=== PATIENT | male | born 1955 | race Hispanic/Latino ===

== ENCOUNTER 2018-04-25 08:50 | Emergency (ER) | payer MEDICAID ==
[2018-04-25 08:55] VITALS: BMI 25.1
[2018-04-25 08:56] VITALS: BP 138/66; O2SAT 98
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
[2018-04-25 11:32] VITALS: PULSE 78; RESP 18; TEMP 98.1
--- NOTE | 2018-04-25 12:04 | RAD ---
Date of service: 04/25/2018 PROCEDURE: Left Knee Radiographs. HISTORY: Pain. COMPARISON: None. FINDINGS: BONES: Normal. No fracture. JOINTS: Severe degenerative changes are seen in the left knee. There is complete loss of the joint space on the medial side with bony sclerosis and osteophyte formation. Large osteophytes are also seen arising from the patellofemoral joint. More mild degenerative changes are seen in the lateral joint space. JOINT EFFUSION: None. OTHER FINDINGS: None. IMPRESSION: Severe osteoarthritis
== END 2018-04-25 11:32 | disposition home or self-care (01) ==
LOC: ED 08:50
DX: G89.29 Other chronic pain (principal); M25.562 Pain in left knee; M17.12 Unilateral primary osteoarthritis, left knee; Z87.891 Personal history of nicotine dependence
CPT/HCPCS: 73562; 96372; 99283; J1100

== ENCOUNTER 2019-02-05 13:05 | Emergency (ER) | payer MEDICAID ==
[2019-02-05 13:07] VITALS: BMI 25.1
[2019-02-05 13:26] VITALS: TEMP 98.1; O2SAT 95
--- NOTE | 2019-02-05 13:48 | ED PDOC ---
Arrival/HPI - History of Present Illness Narrative History of Present Illness (Text): 02/05/19 13:42 Patient is a 63 year old male with past medical history of hepatitis C, cirrhosis, previous drug abuse presenting with chief complaint of right sided abdominal pain which began 5 days ago. Admits to nausea, constipation, and palpitations. Denies fevers, chills, chest pain, shortness of breath, diarrhea, dysuria. Time/Duration: < week Symptom Onset: Sudden Quality: Cramping Severity Level: Mild <Hamilton Hall - Last Filed: 02/05/19 13:42> <Romaine Dexter - Last Filed: 02/05/19 18:46> - General Chief Complaint: Abdominal Pain Time Seen by Provider: 02/05/19 13:11 Past Medical History - Provider Review Nursing Documentation Reviewed: Yes - Infectious Disease Hx of Infectious Diseases: None - Tetanus Immunization Tetanus Immunization: Unknown - Cardiac Hx Cardiac Disorders: Yes Hx Hypertension: Yes - Pulmonary Hx Respiratory Disorders: No - Neurological Hx Neurological Disorder: Yes Hx Seizures: Yes - HEENT Hx HEENT Disorder: No - Renal Hx Renal Disorder: No - Endocrine/Metabolic Hx Endocrine Disorders: No - Hematological/Oncological Hx Hepatitis C: Yes - Integumentary Hx Dermatological Disorder: No - Musculoskeletal/Rheumatological Hx Musculoskeletal Disorders: Yes Hx Arthritis: Yes Other/Comment: bilateral leg pain - Gastrointestinal Hx Gastrointestinal Disorders: Yes Hx Liver Failure: Yes - Genitourinary/Gynecological Hx Genitourinary Disorders: No - Psychiatric Hx Depression: No Hx Emotional Abuse: No Hx Physical Abuse: No Hx Substance Use: Yes - Anesthesia Hx Anesthesia: No Hx Anesthesia Reactions: No Hx Malignant Hyperthermia: No - Suicidal Assessment Feels Threatened In Home Enviroment: No <Hamilton Hall - Last Filed: 02/05/19 13:42> - Provider Review Primary Care Physician: Lorelei Pineda MD <Romaine Dexter - Last Filed: 02/05/19 18:46> Family/Social History - Physician Review Nursing Documentation Reviewed: Yes Family/Social History: No Known Family HX Smoking Status: Former Smoker Hx Alcohol Use: Yes Hx Substance Use: Yes Hx Substance Use Treatment: No <Hamilton Hall - Last Filed: 02/05/19 13:42> Allergies/Home Meds <Hamilton Hall - Last Filed: 02/05/19 13:42> <Romaine Dexter - Last Filed: 02/05/19 18:46> Allergies/Adverse Reactions: Allergies No Known Allergies Allergy (Verified 04/25/18 08:55) Home Medications: Home Meds Medication Instructions Recorded Confirmed Methadone [Methadone HCl] 80 mg PO DAILY 05/06/13 05/06/13 LORazepam [Ativan] 3 mg PO DAILY 04/25/18 04/25/18 Naproxen [Anaprox] 0 mg PO DAILY 04/25/18 04/25/18 Review of Systems - Physician Review All systems were reviewed & negative as marked: Yes - Review of Systems Respiratory: Normal Cardiovascular: Palpitations Gastrointestinal: Abdominal Pain, Nausea Genitourinary Male: Normal <Hamilton Hall - Last Filed: 02/05/19 13:42> Physical Exam Vital Signs Temp Pulse Resp BP Pulse Ox 02/05/19 13:25 98.1 F 75 19 154/56 H 95 Temperature: Afebrile Blood Pressure: Hypertensive Pulse: Regular Respiratory Rate: Normal Appearance: Positive for: Well-Appearing, Comfortable Pain Distress: None Mental Status: Positive for: Alert and Oriented X 3 - Systems Exam Head: Present: Atraumatic, Normocephalic Pupils: Present: PERRL Extroacular Muscles: Present: EOMI Conjunctiva: Present: Normal Mouth: Present: Moist Mucous Membranes Respiratory/Chest: Present: Clear to Auscultation, Good Air Exchange. No: Respiratory Distress, Accessory Muscle Use Cardiovascular: Present: Regular Rate and Rhythm, Normal S1, S2 Abdomen: Present: Normal Bowel Sounds. No: Tenderness, Distention Lower Extremity: Present: Normal Inspection. No: Edema Neurological: Present: GCS=15, CN II-XII Intact, Speech Normal Skin: Present: Warm, Dry, Normal Color Psychiatric: Present: Alert, Oriented x 3 <Hamilton Hall - Last Filed: 02/05/19 13:42> Vital Signs Temp Pulse Resp BP Pulse Ox 02/05/19 13:25 98.1 F 75 19 154/56 H 95 <Romaine Dexter - Last Filed: 02/05/19 18:46> Medical Decision Making ED Course and Treatment: 02/05/19 14:20 Impression: 63 year old male with abdominal pain Plan: - CBC, CMP - Amylase, lipase - Cardiac ISO - Zofran - IVF - CXR - EKG - Urinalysis - Reassess and disposition Prior Visits: Notes and results from previous visits were reviewed. Progress Notes: <Hamilton Hall - Last Filed: 02/05/19 13:42> ED Course and Treatment: 02/05/19 18:02 notified of nodule. 6 mo f/u. 02/05/19 18:45 abd pain/palpiatiosn . pt reports ran out of ativan. labs ct neg. us neg for christel. in erm pt in nad. numerous times requests rx for ativan. adivsed jose not refill chronic narcotic. - RAD Interpretation Narrative RAD Interpretations (Text): 02/05/19 14:43 Chest X-ray reviewed by Sonia Garcia MD, shows: No active disease. Radiology Orders: 02/05/19 13:50 CHEST PORTABLE [RAD] Stat Technical Business Systems Analyst: Radiologist - Medication Orders Current Medication Orders: Discontinued Medications Sodium Chloride (Sodium Chloride 0.9%) 500 mls @ 999 mls/hr IV .Q31M STA Stop: 02/05/19 14:21 Ondansetron HCl (Zofran Inj) 4 mg IVP STAT STA Stop: 02/05/19 13:51 <Romaine Dexter - Last Filed: 02/05/19 18:46> Disposition/Present on Arrival - Present on Arrival Any Indicators Present on Arrival: No History of DVT/PE: No History of Uncontrolled Diabetes: No Urinary Catheter: No History of Decub. Ulcer: No History Surgical Site Infection Following: None <Hamilton Hall - Last Filed: 02/05/19 13:42> - Present on Arrival Any Indicators Present on Arrival: No - Disposition Have Diagnosis and Disposition been Completed?: Yes Disposition Time: 17:00 <Romaine Dexter - Last Filed: 02/05/19 18:46> - Disposition Diagnosis: Abdominal pain, Palpitations Disposition: HOME/ ROUTINE Patient Problems: Current Active Problems Problem Status Onset Abdominal pain Acute Condition: STABLE Discharge Instructions (ExitCare): Acute Abdomen (Belly Pain), Adult (DC) Additional Instructions: return to er with worsneing. please see your doctor/specialist. please discuss your ct finding with your doc. you will need 6 mo followup Referrals: [facility] [Outside] - Follow up with primary [facility] [Outside] - Follow up with primary Mihai Clarke MD [Staff Provider] - Follow up with primary Lorelei Pineda MD [Primary Care Provider] - Follow up with primary Forms: [employer] (Lao)
[2019-02-05] MEDS ORDERED: Sodium Chloride 0.9% 500 ML IV STA (13:51)
--- NOTE | 2019-02-05 14:39 | RAD ---
Date of service: 02/05/2019 HISTORY: abd pain COMPARISON: No prior. TECHNIQUE: 1 view obtained. FINDINGS: LUNGS: No active pulmonary disease. PLEURA: No significant pleural effusion identified, no pneumothorax apparent. CARDIOVASCULAR: No aortic atherosclerotic calcification present. Normal cardiac size. No pulmonary vascular congestion. OSSEOUS STRUCTURES: No significant abnormalities. VISUALIZED UPPER ABDOMEN: Normal. OTHER FINDINGS: None. IMPRESSION: No active disease.
[2019-02-05 14:54] VITALS: RESP 18
[2019-02-05 15:24] LABS: BASO # 0.01 K/mm3 (0.0-2.0); BASO % 0.3 % (0.0-3.0); EOS % 0.5 % (1.5-5.0); HEMOGLOBIN 13.5 g/dL (14.0-18.0); LYMPH # 0.8 (1.2-3.4); LYMPH % 21.3 % (22.0-35.0); MEAN CELL VOLUME 99.7 fl (80.0-105.0); MEAN CORPUSCULAR HEMOGLOBIN 34.3 pg (25.0-35.0); MEAN CORPUSCULAR HGB CONC 34.4 g/dl (31.0-37.0); MONO # 0.3 (0.1-0.6); MONO % 7.6 % (1.0-6.0); RBC 3.94 10^6/uL (3.5-6.1); RED CELL DISTRIBUTION WIDTH 13.7 % (11.5-14.5); WHITE BLOOD COUNT 3.9 10^3/uL (4.5-11.0)
[2019-02-05 15:27] LABS: INR 1.24; PARTIAL THROMBOPLASTIN TIME 36.6 Seconds (26.9-38.3); PROTHROMBIN TIME 13.8 SECONDS (9.4-12.5)
[2019-02-05 15:31] LABS: ALB/GLOB RATIO 0.9 (1.1-1.8); ALBUMIN 4.5 g/dL (3.0-4.8); ALT/SGPT 88 U/L (7-56); AMYLASE 61 U/L (35-125); AST/SGOT 130 U/L (17-59); BLOOD UREA NITROGEN 19 mg/dL (7-21); CALCIUM 9.3 mg/dL (8.4-10.5); GFR NON-AFRICAN AMERICAN > 60; LIPASE 57 U/L (23-300)
[2019-02-05 15:40] LABS: TROPONIN I < 0.01 ng/mL
[2019-02-05] MEDS ORDERED: Iohexol 350 MG/100 ML VIAL ONE (16:19)
--- NOTE | 2019-02-05 16:46 | CARD ---
APPROVED REPORT Date of service: 02/05/2019 EKG Measurement Heart [id number] <Conclusion> Atrial fibrillation Incomplete right bundle branch block Left anterior fascicular block Abnormal ECG
[2019-02-05 16:48] LABS: URINE BILIRUBIN NEGATIVE (NEGATIVE); URINE BLOOD NEGATIVE (NEGATIVE); URINE GLUCOSE (UA) NEGATIVE (NEGATIVE); URINE LEUKOCYTE ESTERASE NEGATIVE Leu/uL (NEGATIVE); URINE PROTEIN NEGATIVE mg/dL (<30 mg/dL)
[2019-02-05 16:52] LABS: URINE APPEARANCE CLEAR (CLEAR); URINE COLOR YELLOW (YELLOW)
--- NOTE | 2019-02-05 17:07 | CT ---
Date of service: 02/05/2019 PROCEDURE: CT Abdomen and Pelvis with contrast HISTORY: rigth sided abd pain h/o of hep c COMPARISON: None. TECHNIQUE: Contrast dose: 96 mL of Omnipaque 350 intravenously. Axial and reformatted coronal and sagittal CT images of the abdomen and pelvis were obtained after IV contrast administration Radiation dose: Total exam DLP = 482.91 mGy-cm. This CT exam was performed using one or more of the following dose reduction techniques: Automated exposure control, adjustment of the mA and/or kV according to patient size, and/or use of iterative reconstruction technique. FINDINGS: LOWER THORAX: 5 millimeter noncalcified nodule at the right lower lobe image 6 series 2 LIVER: Heterogeneous attenuation of the liver without evidence of discrete enhancing mass lesion. The portal vein is patent. GALLBLADDER AND BILE DUCTS: The gallbladder is moderately distended. No definite CT evidence of acute cholecystitis. The common bile duct is also mildly dilated measures in the distal portion it 0.5 millimeter. PANCREAS: The pancreas is small in size. The main pancreatic duct is not dilated. SPLEEN: The spleen is enlarged measures up to 14 centimeter. ADRENALS: Unremarkable. No mass. KIDNEYS AND URETERS: Unremarkable. No hydronephrosis. No solid mass. VASCULATURE: Unremarkable. No aortic aneurysm. Diffuse atherosclerotic calcification in the abdominal aorta and iliac arteries associated with scattered foci of mural thickening. BOWEL: Mild constipation noted. Scattered colonic diverticulosis are noted without evidence of diverticulitis. No obstruction. No gross mural thickening. APPENDIX: No evidence of appendicitis. PERITONEUM: Unremarkable. No free fluid. No free air. LYMPH NODES: Unremarkable. No enlarged lymph nodes. BLADDER: Mild urinary bladder wall thickening is noted. REPRODUCTIVE: Unremarkable. BONES: No acute fracture. Severe osteoarthritic changes at the right hip noted. OTHER FINDINGS: None. IMPRESSION: Moderately distended gallbladder without definite CT evidence of acute cholecystitis. Mildly dilated common bile duct. If clinically warranted further evaluation by ultrasound or MRCP may be obtained. No evidence of pancreatitis or appendicitis. Mild constipation. 5 millimeter noncalcified nodule at the left lung lower lobe. Six-month follow-up reassessment is suggested.
[2019-02-05 17:31] VITALS: BP 163/70; PULSE 85
--- NOTE | 2019-02-05 18:00 | US ---
Date of service: 02/05/2019 HISTORY: abd pain COMPARISON: CT abdomen and pelvis with contrast performed 02/05/19 TECHNIQUE: Sonographic evaluation of the right upper quadrant of the abdomen. FINDINGS: Examination limited by bowel gas. LIVER: Measures 16.0 cm in length. Echogenic liver may be seen in setting of hepatic parenchymal disease or fatty infiltration. No focal hepatic mass identified. The main portal vein appears patent with normal directional flow. No intrahepatic bile duct dilatation. GALLBLADDER: No gallstones. No gallbladder wall thickening or pericholecystic edema. Negative sonographic Coulter's sign as assessed by the tram inspector. COMMON BILE DUCT: Measures 6 mm. No stones. No dilatation. PANCREAS: Not well-visualized. RIGHT KIDNEY: Measures approximately 10.6 x 4.3 x 5.4 cm. No obstructing calculus or hydronephrosis identified. AORTA: Not visualized. IVC: Limited visualization appears grossly unremarkable. OTHER FINDINGS: None . IMPRESSION: Limited study. Echogenic liver may be seen in setting of hepatic parenchymal disease or fatty infiltration.
== END 2019-02-05 19:00 | disposition home or self-care (01) ==
LOC: ED 13:05
DX: R00.2 Palpitations (principal); R10.9 Unspecified abdominal pain; I10 Essential (primary) hypertension; Z87.891 Personal history of nicotine dependence
CPT/HCPCS: 71045; 74177; 76705; 80053; 81003; 82150; 82550; 83615; 83690; 84484; 85025; 85610; 85730; 93005; 96374; 99284; J2405; J7040; Q9967